=== PATIENT | male | born 1965 | race Two or more races ===

== ENCOUNTER 2025-02-16 20:55 | Inpatient (IN) | payer BC, OTHER ==
[~2025-02-16] VITALS: Ht 190.5 cm; Wt 128.7 kg
[2025-02-16 22:16] LABS: Urine Protein, UAD Negative (Negative)
[2025-02-16 22:28] LABS: Hematocrit 40.5 % (41.0-53.0); Hemoglobin 14.0 g/dL (13.5-17.5); Mean Corpuscular Hemoglobin 31.5 pg (28.0-32.0); Mean Corpuscular Volume 90.7 fL (80.0-100.0); Nucleated Red Blood Cells % 0.1 %
[2025-02-16 22:37] LABS: Alanine Aminotransferase 14 U/L (7-40); Albumin 4.5 g/dL (3.2-4.8); Alkaline Phosphatase 75 U/L (46-116); Anion Gap 7 (5-15); BUN/Creatinine Ratio 13.5 (10.0-20.0); Bilirubin, Total 0.8 mg/dL (0.2-1.0); Blood Urea Nitrogen 13 mg/dL (9-23); Calcium 9.5 mg/dL (8.7-10.4); Carbon Dioxide 28 mmol/L (20-31); Chloride 106 mmol/L (98-107); Glucose 102 mg/dL (74-106); Lipase 42 U/L (12-53); Potassium 4.0 mmol/L (3.5-5.1); Sodium 141 mmol/L (136-145); Total Protein 6.7 g/dL (5.7-8.2)
--- NOTE | 2025-02-16 22:52 | ED.PDOC ---
History of Present Illness HPI Comments 59-year-old male presents with 1 day history of nonradiating, RUQ abdominal pain and fever. Patient endorses on progressively worsening symptoms. Significant history of hypertension and partial cholecystectomy with drain placement on January 16, 2025 at [facility]. Procedure was performed by a Dr. Orosco. Patient was discharge with a 10 day antibiotic course with the pending referral with a specialist to oversee his care. Patient reports not contacting his surgeon's office regarding current symptoms. Pain is rated at 4/10 in severity. Patient expresses concern for possible substance. Denies any nausea, vomiting, urinary symptoms, chills, or further associated symptoms. Chief Complaint: Abdominal Pain Time Seen by MD: 21:15 Reviewed Notes: Nurses Notes, Medications, Allergies Allergies: Coded Allergies: NO KNOWN ALLERGIES (Unverified , 02/16/25) Home Meds Reported Medications Meloxicam (Meloxicam) 15 Mg Tab, 1 TAB PO DAILY 02/17/25 Furosemide (Furosemide) 20 Mg Tab, 1 TAB PO DAILY 02/17/25 Amlodipine Besylate (Amlodipine Besylate) 5 Mg Tab, 1 TAB PO DAILY 02/17/25 Information Source: Patient Mode of Arrival: Ambulatory Severity: Moderate Review of Systems: REVIEW OF SYSTEMS: Fever, no chills, or fatigue HEENT: No sore throat, no earache, no congestion, no neck pain. Cardiac: No chest pain. No palpitations. Lungs: No shortness of breath, no cough. GI: RUQ abdominal pain. No nausea, no vomiting, no diarrhea, no constipation. : No dysuria, frequency, or urgency. No hematuria. Musculoskeletal: No joint pain , no joint swelling, no extremity edema. Skin: No rash, no itching. Neuro: No headache, no dizziness, no weakness Vital Signs Vital Signs Date Time Temp Pulse Resp B/P (MAP) Pulse Ox O2 Delivery O2 Flow Rate FiO2 02/17/25 05:14 98.4 85 14 115/59 (77) 100 98.4 Physical Exam General: Awake, alert and oriented. No acute distress. Skin: Skin in warm, dry and intact without rashes or lesions. HEENT: The head is normocephalic and atraumatic. Conjunctivae are clear without exudates or hemorrhage. Sclera is non-icteric. Neck: Normal range of motion. No JVD. Cardiac: Regular rate Respiratory: No signs of respiratory distress. No Stridor. Gastrointestinal: RUQ tenderness, drainage tube with drainage bag in place in RUQ Extremities: Upper and lower extremities are atraumatic in appearance without deformity. Neurological: The patient is awake, alert and oriented to person, place, and time with normal speech. Speech is clear. There is no facial asymmetry. Psychiatric: Appropriate mood and affect. Good judgement and insight. Past Medical History PAST MEDICAL HISTORY: HTN Surgical History: Cholecystectomy (Partial ) Surgical History (Other): Drainage tube placement status post colectomy Family History Family History: Unknown Social History Smoker: Non-Smoker Alcohol: Denies ETOH Use Drugs: Denies Drug Use Lives In: Home Was a procedure done? Was a procedure done?: No Differential Dx Considerations may include: Differential diagnoses considered include: Abdominal aortic aneurysm, VA, esophageal rupture, intestinal obstruction, mesenteric ischemia, perforated viscus or solid organ rupture, CHF with hepatomegaly, pneumonia, abscess, appendicitis, biliary disease, diverticulitis, gastritis, gastroenteritis, hepatitis, hernia, inflammatory bowel disease, pancreatitis, peptic ulcer disease, urinary tract infection, ureteral colic, constipation, GERD, irritable syndrome, abdominal wall pain, nonspecific abdominal pain, herpes zoster, nephr olithiasis, postop complication X-Ray, Labs, Meds, VS Vital Signs Date Time Temp Pulse Resp B/P (MAP) Pulse Ox O2 Delivery O2 Flow Rate FiO2 02/17/25 05:14 98.4 85 14 115/59 (77) 100 98.4 02/17/25 02:37 99.2 91 14 115/61 (79) 97 99.2 02/16/25 21:23 99.2 120 16 128/79 (95) 94 99.2 Lab Test 02/16/25 21:45 02/16/25 21:30 Range/Units White Blood Count 16.1 H 4.4-10.8 10^3/uL Red Blood Count 4.46 L 4.5-5.90 10^6/uL Hemoglobin 14.0 13.5-17.5 g/dL Hematocrit 40.5 L 41.0-53.0 % Mean Corpuscular Volume 90.7 80.0-100.0 fL Mean Corpuscular Hemoglobin 31.5 28.0-32.0 pg Mean Corpuscular Hemoglobin Concent 34.7 32.0-36.0 g/dL Red Cell Distribution Width 13.4 11.8-14.3 % Platelet Count 294 140-450 10^3/uL Mean Platelet Volume 6.7 L 6.9-10.8 fL Neutrophils (%) (Auto) 84.5 H 37.0-80.0 % Lymphocytes (%) (Auto) 8.8 L 10.0-50.0 % Monocytes (%) (Auto) 5.8 0.0-12.0 % Eosinophils (%) (Auto) 0.6 0.0-7.0 % Basophils (%) (Auto) 0.3 0.0-2.0 % Neutrophils # (Auto) 13.6 H 1.6-8.6 10 ^3/uL Lymphocytes # (Auto) 1.4 0.4-5.4 10 ^3/uL Monocytes # (Auto) 0.9 0-1.3 10 ^3/uL Eosinophils # (Auto) 0.1 0-0.8 10 ^3/uL Basophils # (Auto) 0.1 0-0.2 10 ^3/uL Nucleated Red Blood Cells 0.1 % Sodium Level 141 136-145 mmol/L Potassium Level 4.0 3.5-5.1 mmol/L Chloride Level 106 98-107 mmol/L Carbon Dioxide Level 28 20-31 mmol/L Anion Gap 7 5-15 Blood Urea Nitrogen 13 9-23 mg/dL Creatinine 0.96 0.700-1.30 mg/dL Glomerular Filtration Rate Calc 90 >90 mL/min BUN/Creatinine Ratio 13.5 10.0-20.0 Serum Glucose 102 74-106 mg/dL Lactic Acid Level 1.4 0.4-2.0 mmol/L Calcium Level 9.5 8.7-10.4 mg/dL Total Bilirubin 0.8 0.2-1.0 mg/dL Aspartate Amino Transferase (AST) 19 13-40 U/L Alanine Aminotransferase (ALT) 14 7-40 U/L Alkaline Phosphatase 75 46-116 U/L Total Protein 6.7 5.7-8.2 g/dL Albumin 4.5 3.2-4.8 g/dL Lipase 42 12-53 U/L Urine Color Light-yellow Yellow Urine Clarity Clear Clear Urine pH 6.5 5.0-9.0 Urine Specific [place] 1.011 1.001-1.035 Urine Protein Negative Negative Urine Ketones Negative Negative Urine Blood Negative Negative /uL Urine Nitrite Negative Negative Urine Bilirubin Negative Negative Urine Urobilinogen Normal Negative mg/dL Urine Leukocyte Esterase Negative Negative /uL Urine RBC None seen 0 - 3 /hpf Urine Microscopic WBC < 1 0-3 /HPF Urine Squamous Epithelial Cells None seen <5 /hpf Urine Bacteria None seen None Seen /hpf Urine Glucose Normal Normal mg/dL Current Medications Medications (Trade) Dose Ordered Sig/Milena Route Start Time Stop Time Status Last Admin Sodium Chloride 1,000 ml @ 1,000 mls/hr Q1H ONCE IV 02/16/25 21:30 02/16/25 22:29 DC 02/17/25 08:56 Piperacillin Sod/ Tazobactam Sod 100 ml @ 100 mls/hr ONCE ONCE IV 02/16/25 23:30 02/17/25 00:29 DC 02/17/25 12:33 Vancomycin HCl 250 ml @ 250 mls/hr ONCE ONCE IV 02/16/25 23:30 02/17/25 18:53 DC 02/17/25 10:09 Time of 1ST Reevaluation: 21:45 Reevaluation 1ST: Unchanged Patient Education/Counseling: Treatment Family Education/Counseling: No Family Present SEPSIS Sepsis Screen Date sepsis recognized/suspect: Feb 16, 2025 Time Sepsis recognized/suspect: 2115 Recent Procedure: Yes On Antibiotic Therapy: No Respiratory Rate >20: No Heart Rate >90: Yes Temp<36 C (96.8 F) or >38.3 C: No SBP <90 or MAP <65 mmHG: No New Acute Mental Status Change: No Is the patient on CPAP, BIPAP,: No Physician Orders Chest Xray 1 View (02/16/25 21:22) Blood Culture (02/16/25 21:22) Ct Ab Pel With Iv Con Only (02/16/25 21:22) Saline Lock (02/16/25 22:57) Vital Signs Date Time Temp Pulse Resp B/P (MAP) Pulse Ox O2 Delivery O2 Flow Rate FiO2 02/17/25 05:14 98.4 85 14 115/59 (77) 100 98.4 02/17/25 02:37 99.2 91 14 115/61 (79) 97 99.2 02/16/25 21:23 99.2 120 16 128/79 (95) 94 99.2 Laboratory Tests Test 02/16/25 21:45 Lactic Acid Level 1.4 mmol/L (0.4-2.0) White Blood Count 16.1 10^3/uL (4.4-10.8) H Departure 1 Departure Time of Disposition: 01:35 Impression: Primary Impression: Postoperative infection Disposition: 02 SHORT TERM HOSPITAL Condition: Stable Comments 59-year-old male who is status post partial cholecystectomy at [facility] by Dr. Orosco last month presents with a right upper quadrant pain, subjective fever. CBC shows leukocytosis. CT scan today suggestive of infection of gallbladder remnant. Discussed with Dr. Greer, general surgery. His recommendation is transfer back to [facility] for continuity of care @ 0120 Antibiotics initiated in the emergency department. Discussed with Dr. Orosco he states patient can be admitted at this facility and he will see patient in consult @ 0339. Extensive evaluation was performed in attempt to identify or rule out: (See differential diagnosis section) The following tests were ordered, and results were reviewed by me and discussed with patient: (See diagnostic results section) The following test were independently interpreted by me: N/A I reviewed and agreed with the following test results read by other providers: Chest x-ray I reviewed the following notes from the pt's past medical encounters: N/A Additional information was gathered from interviewing the following independent historians: N/A Discussion of management or test interpretation with external physician/other qualified health child care director: Dr. Orosco, Dr. Greer Addressed an acute or chronic illness that poses a threat to life or bodily function: Postoperative infection Decision regarding hospitalization or escalation of hospital level of care: Risk and benefits of admission for further treatment of patient's condition was considered. Due to patient's current clinical condition, high risk of decline and poor outcome if discharged and need for further inpatient management and monitoring, patient will be admitted to the hospital. Drug therapy requiring intensive monitoring for toxicity: IV contrast, IV morphine, Parenteral controlled substances: N/A Decision regarding elective major surgery with identified patient or procedure risk factors: N/A Decision regarding emergency major surgery: N/A Decision not to resuscitate or to de-escalate care because of poor prognosis: N/A Diagnosis or treatment significantly limited by social determinants of health: N/A Critical Care Note Critical Care Time?: No Stability Stability form required: No Heart Score Heart Score: Heart Score Response (Comments) Value History N/A 0 EKG N/A 0 Age N/A 0 Risk Factors N/A 0 Troponin N/A 0 Total 0 I personally scribed for SANNA SIMS MD ([email or web address]) on 02/16/25 at 22:52. Electronically submitted by Sergey Snow ([email or web address]). SANNA SIMS MD Feb 16, 2025 22:52
--- NOTE | 2025-02-17 01:03 | DVH ---
CHEST RADIOGRAPH Indication: Suspected Sepsis Technique: Single frontal view of the chest was obtained COMPARISON: None FINDINGS: Lines and Tubes: None Lungs: Clear Pleura: No effusion. No pneumothorax. Cardiomediastinal contours: Unremarkable Bones: Unremarkable IMPRESSION: 1. No acute disease.
--- NOTE | 2025-02-17 01:05 | DVH ---
Exam: CT CT AB PEL WITH IV CON ONLY History: Status post partial latisha, right upper quadrant pain Comparison Study: None TECHNIQUE: A digital ferry captain image was obtained. During the uneventful, intravenous administration of c ontrast material, multislice data acquisition was obtained through the abdomen and pelvis. The data s et was subsequently reconstructed into multiplanar reformats. RADIATION DOSE: CTDI vol 25.85 mGy. DLP 1654.56 mGy.cm Findings: Liver: Unremarkable. Spleen: Unremarkable. Pancreas: Unremarkable. Gallbladder: The patient is reportedly status post partial cholecystectomy. There is wall thickening and stranding surrounding the urinary bladder. There is an apparent tract extending from the gallbla dder to the superficial skin within the right upper quadrant, with wall enhancement and surrounding s tranding. Adrenals: Unremarkable Kidneys: Left renal cysts. No hydronephrosis. Pelvic Viscera: Unremarkable. Vasculature: Unremarkable. Retroperitoneum: Unremarkable. Bowel: No bowel obstruction. The appendix is normal. Moderate size fat containing umbilical hernia. Musculoskeletal: Unremarkable. Lungs: Minimal basilar atelectasis. Impression: 1. The patient is reportedly status post partial cholecystectomy. There is wall thickening and strand ing surrounding the gallbladder remnant, with a tract extending to the superficial skin within the ri ght upper quadrant. There is wall enhancement and stranding, suggesting infectious/inflammatory proce ss. Further clinical correlation and correlation with procedural history is suggested. 2. Additional findings as detailed.
[2025-02-17] MEDS ORDERED: ONDANSETRON HCL 4 MG/2 ML VIAL IV PRN (07:45)
[2025-02-17] MEDS ORDERED: DOCUSATE SOD 100 MG CAP PO PRN (07:45)
[2025-02-17] MEDS ORDERED: ACETAMINOPHEN 325 MG TAB PO PRN (07:45)
[2025-02-17] MEDS ORDERED: AMLO1TAB22 PO (07:46)
[2025-02-17] MEDS ORDERED: FURO20TA4 PO (07:46)
[2025-02-17] MEDS ORDERED: MELO15TA29 PO (07:46)
--- NOTE | 2025-02-17 07:52 | DVHHP2 ---
History of Present Illness Reason for Visit: Abdominal pain History of Present Illness Hammad Arceo is a 59-year-old male with past medical history of arthritis and hypertension, who came to the hospital due to abdominal pain. Patient had a partial cholecystectomy completed by Dr. Darrian Orosco at [facility] on 01/16/2025. Patient was sent home with a drain in place and was following up as an outpatient. He had seen Dr. Orosco about 2 weeks post-op, and has an appointment scheduled with a specialist for later this month. Yesterday, he began experiencing RUQ pain, fever, chills, and malaise, prompting him to come to the hospital. ER physician spoke with Dr. Orosco and updated him on patient's status. Patient will be admitted for further treatment and care. Cardiovascular: HTN Musculoskeletal: Osteoarthritis Past Surgical History: Cholecystectomy (Partial), Total knee replacement (Bilateral) Smoke: No ALCOHOL: rare Drugs: None Lives: with Family Domestic Violence: Neg Review of Systems Constitutional: Yes: Chills, Sweats, Weakness, Malaise; No: Fever, Other Eyes: No: Pain, Vision change, Conjunctivae inflammation, Eyelid inflammation, Other, Redness ENT: No: Ear pain, Ear discharge, Nose pain, Nose discharge, Nose congestion, Mouth pain, Mouth swelling, Throat pain, Throat swelling, Other Respiratory: No: Cough, Dry, Shortness of breath, SOB with excertion, Wheezing, Hemoptysis, Pleuritic Pain, Sputum, Wheezing, Other Cardiovascular: No: Chest Pain, Palpitations, Orthopnea, Paroxysmal Noc. Dyspnea, Edema, Lt Headedness, Other Gastrointestinal: Abdominal Pain (RUQ); No: Nausea, Vomiting, Diarrhea, Constipation, Melena, Hematochezia, Other Genitourinary: No Dysuria, No Frequency, No Incontinence, No Hematuria, No Retention, No Other Musculoskeletal: No: other, neck pain, shoulder pain, arm pain, back pain, hand pain, leg pain, foot pain Skin: No: Rash, Lesions, Jaundice, Bruising, Other Neurological: No: Weakness, Numbness, Incoordination, Change in speech, Confusion, Seizures, Other Allergies: Coded Allergies: NO KNOWN ALLERGIES (Unverified , 02/16/25) Medications Current Medications Medications Dose Ordered Sig/Milena Route Start Time Stop Time Status Last Admin Dose Admin Sodium Chloride 10 ml Q8HR IV 02/17/25 14:00 UNV Acetaminophen/ Hydrocodone Bitart 1 tab Q4HP PRN PO 02/17/25 07:45 UNV Ondansetron HCl 4 mg Q4HP PRN IV 02/17/25 07:45 UNV Docusate Sodium 100 mg BIDPRN PRN PO 02/17/25 07:45 UNV Acetaminophen 650 mg Q6HP PRN PO 02/17/25 07:45 UNV Exam Vital Signs Vital Signs Date Time Temp Pulse Resp B/P (MAP) Pulse Ox O2 Delivery O2 Flow Rate FiO2 02/17/25 05:14 98.4 85 14 115/59 (77) 100 98.4 General Appearance: Alert, Oriented X3, Cooperative, moderate distress HEENT: Atraumatic, PERRLA Respiratory: Clear to auscultation, Normal air movement Cardiovascular: Regular rate, Normal S1, Normal S2 Abdominal: Normal bowel sounds, Soft, Other (RUQ pain, drain in place) Extremities: No clubbing, No cyanosis, No edema, Normal pulses, No tenderness/swelling Skin: No rashes, No breakdown, No significant lesion Neuro: Normal gait, Normal speech, Strength at 5/5 X4 ext Psych/Mental Status: Mental status NL, Mood NL Labs/Xrays Labs Test 02/16/25 21:45 02/16/25 21:30 Range/Units White Blood Count 16.1 H 4.4-10.8 10^3/uL Red Blood Count 4.46 L 4.5-5.90 10^6/uL Hemoglobin 14.0 13.5-17.5 g/dL Hematocrit 40.5 L 41.0-53.0 % Mean Corpuscular Volume 90.7 80.0-100.0 fL Mean Corpuscular Hemoglobin 31.5 28.0-32.0 pg Mean Corpuscular Hemoglobin Concent 34.7 32.0-36.0 g/dL Red Cell Distribution Width 13.4 11.8-14.3 % Platelet Count 294 140-450 10^3/uL Mean Platelet Volume 6.7 L 6.9-10.8 fL Neutrophils (%) (Auto) 84.5 H 37.0-80.0 % Lymphocytes (%) (Auto) 8.8 L 10.0-50.0 % Monocytes (%) (Auto) 5.8 0.0-12.0 % Eosinophils (%) (Auto) 0.6 0.0-7.0 % Basophils (%) (Auto) 0.3 0.0-2.0 % Neutrophils # (Auto) 13.6 H 1.6-8.6 10 ^3/uL Lymphocytes # (Auto) 1.4 0.4-5.4 10 ^3/uL Monocytes # (Auto) 0.9 0-1.3 10 ^3/uL Eosinophils # (Auto) 0.1 0-0.8 10 ^3/uL Basophils # (Auto) 0.1 0-0.2 10 ^3/uL Nucleated Red Blood Cells 0.1 % Sodium Level 141 136-145 mmol/L Potassium Level 4.0 3.5-5.1 mmol/L Chloride Level 106 98-107 mmol/L Carbon Dioxide Level 28 20-31 mmol/L Anion Gap 7 5-15 Blood Urea Nitrogen 13 9-23 mg/dL Creatinine 0.96 0.700-1.30 mg/dL Glomerular Filtration Rate Calc 90 >90 mL/min BUN/Creatinine Ratio 13.5 10.0-20.0 Serum Glucose 102 74-106 mg/dL Lactic Acid Level 1.4 0.4-2.0 mmol/L Calcium Level 9.5 8.7-10.4 mg/dL Total Bilirubin 0.8 0.2-1.0 mg/dL Aspartate Amino Transferase (AST) 19 13-40 U/L Alanine Aminotransferase (ALT) 14 7-40 U/L Alkaline Phosphatase 75 46-116 U/L Total Protein 6.7 5.7-8.2 g/dL Albumin 4.5 3.2-4.8 g/dL Lipase 42 12-53 U/L Urine Color Light-yellow Yellow Urine Clarity Clear Clear Urine pH 6.5 5.0-9.0 Urine Specific [place] 1.011 1.001-1.035 Urine Protein Negative Negative Urine Ketones Negative Negative Urine Blood Negative Negative /uL Urine Nitrite Negative Negative Urine Bilirubin Negative Negative Urine Urobilinogen Normal Negative mg/dL Urine Leukocyte Esterase Negative Negative /uL Urine RBC None seen 0 - 3 /hpf Urine Microscopic WBC < 1 0-3 /HPF Urine Squamous Epithelial Cells None seen <5 /hpf Urine Bacteria None seen None Seen /hpf Urine Glucose Normal Normal mg/dL Exam: CT CT AB PEL WITH IV CON ONLY History: Status post partial latisha, right upper quadrant pain Findings: Liver: Unremarkable. Spleen: Unremarkable. Pancreas: Unremarkable. Gallbladder: The patient is reportedly status post partial cholecystectomy. There is wall thickening and stranding surrounding the urinary bladder. There is an apparent tract extending from the gallbladder to the superficial skin within the right upper quadrant, with wall enhancement and surrounding stranding. Adrenals: Unremarkable Kidneys: Left renal cysts. No hydronephrosis. Pelvic Viscera: Unremarkable. Vasculature: Unremarkable. Retroperitoneum: Unremarkable. Bowel: No bowel obstruction. The appendix is normal. Moderate size fat containing umbilical hernia. Musculoskeletal: Unremarkable. Lungs: Minimal basilar atelectasis. Impression: 1. The patient is reportedly status post partial cholecystectomy. There is wall thickening and stranding surrounding the gallbladder remnant, with a tract extending to the superficial skin within the right upper quadrant. There is wall enhancement and stranding, suggesting infectious/inflammatory process. Further clinical correlation and correlation with procedural history is suggested. 2. Additional findings as detailed. CHEST RADIOGRAPH FINDINGS: Lines and Tubes: None Lungs: Clear Pleura: No effusion. No pneumothorax. Cardiomediastinal contours: Unremarkable Bones: Unremarkable IMPRESSION: 1. No acute disease. Assessment/Plan Assessment/Plan Assessment: Postoperative infection, Leukocytosis, Obesity, Hypertension, Plan: Admit to Med-Surg, Surgical consult, IV antibiotics, IV hydration, PT/PTT, Blood cultures, Home medications reconciled, Plan discussed with: Patient My Orders Orders - FABIO BERUMEN Procedure Category Date Status Time Admit ADMIT 02/17/25 Transmitted 07:41 Code Status CODE 02/17/25 Transmitted 07:41 2 Gm Sodium Diet DIET 02/17/25 Transmitted Breakfast Sodium Chloride Lock PHA 02/17/25 Logged (Saline Lock Ns) 14:00 Hydrocodone-Acet PHA 02/17/25 Logged 5/325mg Tab ([place] 07:45 Ondansetron Hcl PHA 02/17/25 Logged (Zofran) 07:45 Docusate Sodium PHA 02/17/25 Logged Capsule (Colace 07:45 Complete Blood Count LAB 02/18/25 Verified 04:00 Comprehensive LAB 02/18/25 Verified Metabolic Panel 04:00 Condition: Serious REMY 02/17/25 In Process 07:41 Acetaminophen Tablet PHA 7/8/25 Logged (Tylenol Tablet) 07:45 * Surgical Consult CONS 02/17/25 Transmitted Date of Service: Feb 17, 2025 Billing Provider: FABIO BERUMEN Common Visit Codes: [id number] INP/OBS CARE (MOD) FABIO BERUMEN Feb 17, 2025 07:52
[2025-02-17 08:43] LABS: INR 1.02 (0.9-1.15); Partial Thromboplastin Time 29.1 SEC (24.5-34.5); Prothrombin Time 10.8 sec (9.3-11.8)
[2025-02-17] MEDS: ONDANSETRON HCL 4 MG/2 ML VIAL IV ONE (08:53)
[2025-02-17] MEDS: MORPHINE SULFATE INJ 2 MG/ml SYRG IV ONE (08:53)
[2025-02-17] MEDS: SODIUM CHLORIDE 0.9% 1,000 ML IV ONE (08:56)
[2025-02-17] MEDS: VANCOMYCIN 1GM/200ML PM 250 ML IV ONE (10:09)
[2025-02-17] MEDS: FUROSEMIDE 20 MG TAB PO SCH (10:15)
[2025-02-17] MEDS: cefTRIAXone 1GM/50ML D5W 50 ML IV SCH (11:51)
[2025-02-17 11:55] VITALS: BP 108/63; PULSE 80; RESP 18; TEMP 97.8; O2SAT 100
[2025-02-17] MEDS: PIPERACILLIN-TAZOB 3.375GM 100 ML IV ONE (12:33)
[2025-02-17 15:20] VITALS: BP 133/69; PULSE 74; RESP 18; TEMP 97.4; O2SAT 98
--- NOTE | 2025-02-17 16:16 | DVHPN2 ---
Assessment/Plan Assessment/Plan progress note 59 M s/p percutaneous cholecystostomy in OSH 01/16/25 admitted for postop fever. discussed with dr Orosco, pt with plan for f/u with hepatobiliary in 2 weeks, drain non purulent, likely chronic inflammation. covered with iv abx physical exam aox4 obese PERLLA MMM clear breath sounds s1 s2 rrr abdomen soft, drain from RUQ, non purulent, mildly tender no le edema labs ekg imaging reviewed assessment and plan fever reactive vs active infection RUQ pain s/p percutaneous latisha leukocytosis obesity c/w zosyn surg eval pain mgmt discussed with patient to keep f/u with hepatobiliary diet reg dvt ppx ambulatory Plan discussed with: Patient Date of Service: Feb 17, 2025 Billing Provider: JULIAN GAY MD Common Visit Codes: [id number] INP/OBS CARE(HIGH) JULIAN GAY MD Feb 17, 2025 16:16
[2025-02-17 17:00] VITALS: BP 133/69; PULSE 74; RESP 18; TEMP 97.4; O2SAT 98
[2025-02-17] MEDS: SODIUM CHLOR 0.9% PF (SALINE LOCK) 10ML VIAL/SYR IV SCH (18:01)
[2025-02-17] MEDS: HYDROcodone-ACET 5/325MG TAB PO PRN (18:18)
--- NOTE | 2025-02-17 19:27 | DVHINCON2 ---
DATE OF CONSULTATION: 02/17/2025 REQUESTING PHYSICIAN: PRETTY Simon CONSULTING PHYSICIAN: James Orosco MD REASON FOR CONSULTATION: Abdominal pain. HISTORY OF PRESENT ILLNESS: The patient is a 59-year-old male who came to the Emergency Department complaining of right upper quadrant abdominal pain since the day before his admission with associated subjective fevers of 100.2 and chills. Denied icteric sclerae, jaundice, nausea, vomiting, hemoptysis, hematemesis, bilious emesis, chest pain, shortness of breath, unintentional weight loss, night sweats, dysuria, hematuria, choluria, acholic stools, melena or hematochezia. PAST MEDICAL HISTORY: Significant for hypertension, osteoarthritis, hyperuricemia. PAST SURGICAL HISTORY: Bilateral TKR, tonsillectomy, rhinoplasty and recent laparoscopic cholecystostomy (1 month ago). MEDICATIONS: Amlodipine, Lasix, meloxicam, colchicine, potassium. ALLERGIES: NKDA. SOCIAL HISTORY: Denies smoking cigarettes, alcohol use, drug use, marijuana use or vaping. Admit to occasional use of alcohol. FAMILY HISTORY: Noncontributory REVIEW OF SYSTEMS: NEURO: Negative. PSYCHIATRIC: Negative. ENDOCRINE: Negative. ENT: Negative. CARDIOVASCULAR: Negative. PULMONARY: As above. GASTROINTESTINAL: As above. GENITOURINARY: Negative. HEMATOLOGIC/INFECTIOUS DISEASE: Negative. LYMPHATICS: Negative. MUSCULOSKELETAL: Negative. SKIN: Negative. BREASTS: Negative. PHYSICAL EXAMINATION: GENERAL: He is lying comfortably in bed. He is calm, pleasant and in no distress. NEUROLOGIC: Alert, awake, and oriented x3. Grossly intact. HEART: Normal heart rate and blood pressure. LUNGS: Effortless breathing. Normal oxygen saturation and respiratory rate. ABDOMEN: Soft, obese, nondistended with mild right upper quadrant tenderness. No peritoneal signs, no rebound. Well-healed laparoscopic scar. Incarcerated supraumbilical ventral hernia unchanged. Cholecystostomy tube in place with clean exit site. Cholecystostomy drainage, bilious dark fluid. EXTREMITIES: No edema or tenderness. LABORATORY DATA: Labs reviewed. Remarkable leukocytosis at 16. Rest of labs are essentially unremarkable. CT scan of the abdomen and pelvis was reviewed with corresponding report. There is a percutaneous cholecystostomy tube in place, which the radiologist interpreted as stranding extending to the gallbladder. The gallbladder is decompressed and enhanced likely secondary to its decompressed state. There is also evidence of a ventral hernia, which is stable. ASSESSMENT: A 59-year-old male with: * Right upper quadrant abdominal pain status post percutaneous cholecystostomy. * Gallbladder thickening likely secondary to its decompressed state. * Chronic inflammatory changes. Doubt acute cholecystitis. * Leukocytosis, likely reactive. PLANS AND RECOMMENDATIONS: Repeat CBC tomorrow. Discontinue Flagyl, vancomycin and Rocephin. Remain on Zosyn. Recommend DVT and GI prophylaxis. Continue his diet. The patient will be reassessed tomorrow. If condition improves, will be discharged home on oral antibiotic therapy and followup appointment. The patient has a followup appointment with Dr. Del Castillo at [place] for hepatobiliary surgery services. He will keep that appointment. Thank you for allowing me to participate in care of your patient. I will follow him with you. MD MARTINEZ Bailey/HAYLEY TID: [id number] RECEIPT: [id number]
[2025-02-17 20:00] VITALS: PULSE 70; RESP 18; O2SAT 98
[2025-02-17 21:00] VITALS: BP 119/69; PULSE 80; RESP 20; TEMP 99.8; O2SAT 96
[2025-02-18 01:00] VITALS: BP 112/71; PULSE 70; RESP 18; TEMP 97.7; O2SAT 98
[2025-02-18 05:00] VITALS: BP 111/77; PULSE 70; RESP 20; TEMP 98.2; O2SAT 97
[2025-02-18] MEDS: PANTOPRAZOLE 40 MG TAB PO SCH (05:37)
[2025-02-18] MEDS: HYDROcodone-ACET 10/325MG TAB PO PRN (05:37)
[2025-02-18 06:00] LABS: Hematocrit 36.4 % (41.0-53.0); Hemoglobin 12.8 g/dL (13.5-17.5); Mean Corpuscular Hemoglobin 31.9 pg (28.0-32.0); Mean Corpuscular Volume 90.2 fL (80.0-100.0); Nucleated Red Blood Cells % 0.0 %
[2025-02-18 06:17] LABS: Alanine Aminotransferase 11 U/L (7-40); Albumin 4.0 g/dL (3.2-4.8); Alkaline Phosphatase 60 U/L (46-116); Anion Gap 9 (5-15); BUN/Creatinine Ratio 13.1 (10.0-20.0); Bilirubin, Total 0.8 mg/dL (0.2-1.0); Blood Urea Nitrogen 11 mg/dL (9-23); Calcium 9.2 mg/dL (8.7-10.4); Carbon Dioxide 27 mmol/L (20-31); Glucose 89 mg/dL (74-106); Potassium 3.9 mmol/L (3.5-5.1); Sodium 144 mmol/L (136-145); Total Protein 6.0 g/dL (5.7-8.2)
[2025-02-18 06:20] LABS: Chloride 108 mmol/L (98-107)
[2025-02-18] MEDS ORDERED: METR-344 PO (08:43)
[2025-02-18] MEDS ORDERED: AUG875T PO (08:43)
[2025-02-18] MEDS ORDERED: HYDR-4902 PO ×2 (08:55→11:19)
[2025-02-18 09:00] VITALS: BP 118/75; PULSE 68; RESP 18; TEMP 98.8; O2SAT 98
--- NOTE | 2025-02-18 09:02 | DVHPN2 ---
Progress Note Date Seen: Feb 18, 2025 Medical Necessity Reason Pt with a Central, PICC or Fol: No Subjective Review of Systems Pt feels much better. Continues tolerating diet. Admits to minimal RUQ discomfort. Objective vital signs Vital Sign Date Time Temp Pulse Resp B/P (MAP) Pulse Ox O2 Delivery O2 Flow Rate FiO2 02/18/25 05:00 98.2 70 20 111/77 (88) 97 98.2 02/17/25 20:00 Room Air* 0 21 Total Intake and Output 02/17/25 02/17/25 02/18/25 15:00 23:00 07:00 Intake Total 400 ml 600 ml 300 ml Balance 400 ml 600 ml 300 ml medications Current Medications Medications Dose Ordered Sig/Milena Route Start Time Stop Time Status Last Admin Dose Admin Sodium Chloride 10 ml Q8HR IV 02/17/25 14:00 02/18/25 05:37 10 ML Acetaminophen/ Hydrocodone Bitart 1 tab Q4HP PRN PO 02/17/25 07:45 02/17/25 18:18 1 TAB Ondansetron HCl 4 mg Q4HP PRN IV 02/17/25 07:45 Docusate Sodium 100 mg BIDPRN PRN PO 02/17/25 07:45 Acetaminophen 650 mg Q6HP PRN PO 02/17/25 07:45 Amlodipine Besylate 5 mg DAILY PO 02/17/25 10:00 02/17/25 10:16 5 MG Furosemide 20 mg DAILY PO 02/17/25 10:00 02/17/25 10:15 20 MG Patient Own Medication 1 tab DAILY PO 02/17/25 10:00 Acetaminophen/ Hydrocodone Bitart 1 tab Q4HP PRN PO 02/17/25 19:00 02/18/25 05:37 1 TAB Pantoprazole Sodium 40 mg BID@0600,1700 PO 02/18/25 06:00 02/18/25 05:37 40 MG Enoxaparin Sodium 40 mg DAILY SC 02/18/25 10:00 Examination AFVSS GENERAL: He is lying comfortably in bed. He is calm, pleasant and in no distress. NEUROLOGIC: Alert, awake, and oriented x3. Grossly intact. HEART: Normal heart rate and blood pressure. LUNGS: Effortless breathing. Normal oxygen saturation and respiratory rate. ABDOMEN: Soft, obese, nondistended with minimal right upper quadrant tenderness. No peritoneal signs, no rebound. Well-healed laparoscopic scar. Incarcerated supraumbilical ventral hernia unchanged. Cholecystostomy tube in place with clean exit site. Cholecystostomy drain with bilious effluent EXTREMITIES: No edema or tenderness laboratory and microbiology Laboratory Tests 02/18/25 05:21 Test 02/18/25 05:21 Range/Units Serum Glucose 89 74-106 mg/dL Microbiology Date/Time Source Procedure Growth Status 02/16/25 21:48 Blood Blood Culture - Preliminary NO GROWTH AFTER 24 HOURS OF INCUBATION. Resulted Labs and/or images reviewed: Labs reviewed by me (Resolution of leukocytosis. Unlikely infectious in origin. Blood Cx negative to date.) Problem List/Assessment/Plan Problems(with codes): (1) Abdominal pain Problem List/Assessment/Plan ASSESSMENT: A 59-year-old male with: * Right upper quadrant abdominal pain status post percutaneous cholecystostomy. * Gallbladder thickening likely secondary to its decompressed state. * Chronic inflammatory changes. Doubt acute cholecystitis. * Leukocytosis reactive, resolved. PLANS AND RECOMMENDATIONS: Continue diet. D/C home on Augmentin and flagyl. [place] 5/325 1 tab PO q 6 hrs PRN pain #30. Followup appointment with Dr. Del Castillo at [place] for hepatobiliary surgery services. Plan discussed with: Patient My Orders My Orders Orders - ALICIA IVEY MD Procedure Category Date Status Time Hydrocodone-Acet PHA 02/17/25 In Process 10/325mg Tab ([place] 19:00 Pantoprazole Tablet PHA 02/18/25 In Process (Protonix Tablet) 06:00 Enoxaparin Sodium PHA 02/18/25 In Process (Lovenox) 10:00 ALICIA IVEY MD Feb 18, 2025 09:02
[2025-02-18] MEDS: ENOXAPARIN SOD 40 MG/0.4 ML SYRINGE SC SCH (09:53)
--- NOTE | 2025-02-18 11:20 | DVHDS2 ---
Discharge Summary Date of Admission Feb 17, 2025 at 07:41 Date of Discharge: Feb 18, 2025 Labs/Diagnostic Data: Laboratory Results Test 02/18/25 05:21 02/17/25 07:58 02/16/25 21:45 02/16/25 21:30 White Blood Count 6.1 10^3/uL (4.4-10.8) Red Blood Count 4.03 10^6/uL (4.5-5.90) Hemoglobin 12.8 g/dL (13.5-17.5) Hematocrit 36.4 % (41.0-53.0) Mean Corpuscular Volume 90.2 fL (80.0-100.0) Mean Corpuscular Hemoglobin 31.9 pg (28.0-32.0) Mean Corpuscular Hemoglobin Concent 35.3 g/dL (32.0-36.0) Red Cell Distribution Width 13.0 % (11.8-14.3) Platelet Count 258 10^3/uL (140-450) Mean Platelet Volume 6.5 fL (6.9-10.8) Neutrophils (%) (Auto) 59.6 % (37.0-80.0) Lymphocytes (%) (Auto) 28.9 % (10.0-50.0) Monocytes (%) (Auto) 8.0 % (0.0-12.0) Eosinophils (%) (Auto) 3.0 % (0.0-7.0) Basophils (%) (Auto) 0.5 % (0.0-2.0) Neutrophils # (Auto) 3.6 10 ^3/uL (1.6-8.6) Lymphocytes # (Auto) 1.8 10 ^3/uL (0.4-5.4) Monocytes # (Auto) 0.5 10 ^3/uL (0-1.3) Eosinophils # (Auto) 0.2 10 ^3/uL (0-0.8) Basophils # (Auto) 0 10 ^3/uL (0-0.2) Nucleated Red Blood Cells 0.0 % Sodium Level 144 mmol/L (136-145) Potassium Level 3.9 mmol/L (3.5-5.1) Chloride Level 108 mmol/L (98-107) Carbon Dioxide Level 27 mmol/L (20-31) Anion Gap 9 (5-15) Blood Urea Nitrogen 11 mg/dL (9-23) Creatinine 0.84 mg/dL (0.700-1.30) Glomerular Filtration Rate Calc 100 mL/min (>90) BUN/Creatinine Ratio 13.1 (10.0-20.0) Serum Glucose 89 mg/dL (74-106) Calcium Level 9.2 mg/dL (8.7-10.4) Total Bilirubin 0.8 mg/dL (0.2-1.0) Aspartate Amino Transferase (AST) 13 U/L (13-40) Alanine Aminotransferase (ALT) 11 U/L (7-40) Alkaline Phosphatase 60 U/L (46-116) Total Protein 6.0 g/dL (5.7-8.2) Albumin 4.0 g/dL (3.2-4.8) Prothrombin Time 10.8 sec (9.3-11.8) Prothrombin Time INR 1.02 (0.9-1.15) Activated Partial Thromboplast Time 29.1 SEC (24.5-34.5) Lactic Acid Level 1.4 mmol/L (0.4-2.0) Lipase 42 U/L (12-53) Urine Color Light-yellow (Yellow) Urine Clarity Clear (Clear) Urine pH 6.5 (5.0-9.0) Urine Specific [place] 1.011 (1.001-1.035) Urine Protein Negative (Negative) Urine Ketones Negative (Negative) Urine Blood Negative /uL (Negative) Urine Nitrite Negative (Negative) Urine Bilirubin Negative (Negative) Urine Urobilinogen Normal mg/dL (Negative) Urine Leukocyte Esterase Negative /uL (Negative) Urine RBC None seen /hpf (0 - 3) Urine Microscopic WBC < 1 /HPF (0-3) Urine Squamous Epithelial Cells None seen /hpf (<5) Urine Bacteria None seen /hpf (None Seen) Urine Glucose Normal mg/dL (Normal) Other Laboratory Tests 02/18/25 05:21 Brief Hx & Hospital Course: 59 M s/p percutaneous cholecystostomy in OSH 01/16/25 admitted for postop fever. discussed with dr Orosco, pt with plan for f/u with hepatobiliary in 2 weeks, drain non purulent, likely chronic inflammation. covered with iv abx. seen by surgery, cleared to dc with home oral abx. Condition at Discharge: Good Final Diagnosis/Problems List fever reactive vs active infection RUQ pain s/p percutaneous latisha leukocytosis obesity Discharge Disposition: Home Discharge Instruct/Medications Diet: Consistent carbohydrate, Cardiac 2g Na,low cholest Activity: No Restrictions, As Tolerated Follow Up/Referral: with hepatobiliary Scheduled Amlodipine Besylate (Amlodipine Besylate), 1 TAB PO DAILY, (Reported) Amoxicillin & Pot Clavulanate (Augmentin Tablet), 875 MG PO BID Furosemide (Furosemide), 1 TAB PO DAILY, (Reported) Meloxicam (Meloxicam), 1 TAB PO DAILY, (Reported) Metronidazole (Flagyl), 1 TAB PO TID Scheduled PRN Hydrocodone-Acetaminophen (Hydrocodone Bitartrate/AC 5-325 mg), 1 TAB PO Q6HP PRN Discharge Statement: "Patient was advised to return to the ER or call 911 if any headaches, dizziness, shortness of breath, chest pain, abdominal pain, bleeding, fevers, or worsening of medical condition. Patient was counseled about treatment plan, medications, possible side effects, patientverbalized understanding. All questions were answered to the best of my ability. This discharge took greater then 30 minutes in planning, reviewing documentation, counseling the patient, and discussing with other team members." ASSESSMENT ASSESSMENT Assessment RUQ pain fever s/p perc latisha Date of Service: Feb 18, 2025 Billing Provider: JULIAN GAY MD Common Visit Codes: 57479-MYQ/OBS DISCH DAY >30min JULIAN GAY MD Feb 18, 2025 11:20
[2025-02-18 12:48] VITALS: BP 118/75; TEMP 37.1
[2025-02-18 13:00] VITALS: BP 106/68; PULSE 65; RESP 18; TEMP 98.5; O2SAT 98
== END 2025-02-18 13:30 | disposition home or self-care (01) | DRG 863 ==
LOC: ER 20:55 → OVERFLOW 02-17 07:41 → EAST 02-17 15:17
PROVIDERS: ADMIT Student in an Organized Health Care Education/Training Program; ATTEND Student in an Organized Health Care Education/Training Program
DX: T81.40XA Infection following a procedure, unspecified, initial encounter (principal); E66.9 Obesity, unspecified; I10 Essential (primary) hypertension; Z68.34 Body mass index [BMI] 34.0-34.9, adult; M19.09 Primary osteoarthritis, other specified site; Z96.653 Presence of artificial knee joint, bilateral; Z90.49 Acquired absence of other specified parts of digestive tract; Y83.8 Other surgical procedures as the cause of abnormal reaction of the patient, or of later complication, without mention of misadventure at the time of the procedure; Y92.89 Other specified places as the place of occurrence of the external cause
CPT/HCPCS: 36415; 71045; 74177; 80053; 81001; 83605; 83690; 85025; 85610; 85730; 87040; G0378; J2543